=== PATIENT | male | born 1960 | race Caucasian/White ===

== ENCOUNTER 2020-09-17 11:08 | Emergency (ER) | payer OTHER ==
[~2020-09-17] VITALS: Ht 182.9 cm; Wt 97.5 kg
[2020-09-17 13:24] LABS: CLARITY,URINE CLEAR (CLEAR); COLOR,URINE YELLOW (YELLOW); KETONES,URINE NEGATIVE (NEGATIVE); LEUKOCYTE ESTERASE ,URINE NEGATIVE (NEGATIVE); NITRITE,URINE NEGATIVE (NEGATIVE); PROTEIN,URINE DIPSTICK NEGATIVE (NEGATIVE); URINE UROBILINOGEN 0.2 mg/dL (0.2 - 1)
[2020-09-17 14:04] LABS: BACTERIA,URINE MODERATE /HPF
[2020-09-17 14:37] LABS: BASOPHILS # (AUTO) 0.1 (0.0-0.1); BASOPHILS % 0.3 % (0.0-1.0); EOSINOPHILS % 0.1 % (0.0-6.0); HEMOGLOBIN 15.3 g/dL (14.0-18.0); LYMPHOCYTES # (AUTO) 1.5 (1.0-3.2); LYMPHOCYTES % 7.6 % (18.0-39.1); MEAN CORPUSCULAR HEMOGLOBIN 30.7 pg (28-32); MEAN CORPUSCULAR HGB CONC 33.3 g/dL (31-35); MEAN CORPUSCULAR VOLUME 92.2 fL (81-99); MONOCYTES # (AUTO) 0.9 (0.2-0.8); MONOCYTES % 4.8 % (4.4-11.3); NEUTROPHILS % 86.7 % (38.7-80.0); PLATELET COUNT 137 x10e3/uL (140-360); RED BLOOD COUNT 4.99 x10e6/uL (4.3-5.7); RED CELL DISTRIBUTION WIDTH 12.7 % (11.7-14.4)
[2020-09-17 14:53] LABS: ALBUMIN 3.8 g/dL (3.5-5.0); ALBUMIN/GLOBULIN RATIO 1.1 (0.8-2.0); ANION GAP 14.2 mmol/L (8-16); CALCIUM 9.6 mg/dL (8.4-10.2); CREATININE, SERUM 1.52 mg/dL (0.72-1.25); POTASSIUM 4.2 mmol/L (3.5-5.1)
[2020-09-17] MEDS ORDERED: SODIUM CHLORIDE 0.9% 1000ML 1,000 ML IV STA (15:12)
[2020-09-17] MEDS ORDERED: SODIUM CHLORIDE 0.9% 50ML 50 ML ONE (16:14)
[2020-09-17] MEDS ORDERED: IOPAMIDOL 370 MG/ML 200 ML INFUS..BTL INJ ONE (16:15)
[2020-09-17] MEDS ORDERED: CEFTRIAXONE 1 GM in SODIUM CHLORIDE 0.9% 50ML 50 ML IV SCH (17:00)
== END 2020-09-17 18:45 | disposition home or self-care (01) ==
LOC: ER 13:52
DX: R33.9 Retention of urine, unspecified (principal); D72.829 Elevated white blood cell count, unspecified; I10 Essential (primary) hypertension; F17.210 Nicotine dependence, cigarettes, uncomplicated
CPT/HCPCS: 36415; 51702; 71045; 74177; 80053; 81001; 85025; 87040; 87086; 99284; Q9967; 51700

== ENCOUNTER 2020-10-01 07:00 | Emergency (ER) | payer OTHER ==
[~2020-10-01] VITALS: Ht 182.9 cm; Wt 88.5 kg
[2020-10-01] MEDS ORDERED: FLOMAX0.4 MG PO (07:16)
[2020-10-01 07:48] VITALS: BP 137/88
== END 2020-10-01 09:08 | disposition home or self-care (01) ==
LOC: ER 07:09
DX: R33.9 Retention of urine, unspecified (principal); I10 Essential (primary) hypertension
CPT/HCPCS: 51700; 99282

== ENCOUNTER 2020-12-05 12:26 | Emergency (ER) | payer OTHER ==
[~2020-12-05] VITALS: Ht 182.9 cm; Wt 83.5 kg
[~2020-12-05 12:26] MED LIST: FLOMAX0.4 MG PO
[2020-12-05 14:21] LABS: CLARITY,URINE TURBID (CLEAR); COLOR,URINE BROWN (YELLOW); KETONES,URINE TRACE (NEGATIVE); LEUKOCYTE ESTERASE ,URINE LARGE (NEGATIVE); NITRITE,URINE NEGATIVE (NEGATIVE); PROTEIN,URINE DIPSTICK 2+ (NEGATIVE); URINE UROBILINOGEN 0.2 mg/dL (0.2 - 1)
[2020-12-05 14:24] LABS: BACTERIA,URINE MODERATE /HPF; WBC,URINE (MAN) >50 /HPF (0-5)
== END 2020-12-05 15:17 | disposition home or self-care (01) ==
LOC: ER 13:32
DX: R33.9 Retention of urine, unspecified (principal); N39.0 Urinary tract infection, site not specified; I10 Essential (primary) hypertension
CPT/HCPCS: 51700; 81001; 87086; 87186; 99283